=== PATIENT | male | born 1945 | race Asian ===

== ENCOUNTER 2016-07-16 12:38 | Emergency (ER) | payer OTHER ==
[~2016-07-16] VITALS: Ht 175.3 cm; Wt 76.2 kg
[~2016-07-16 12:38] MED LIST: ALBU90AE13 INH; AMLO5TAB PO; AMOX500T5 PO; MEDROL DOSEPAK4 MG PO; TRAM50TA PO
[2016-07-16 13:31] LABS: PLATELET COUNT 222 K/uL (142-355)
[2016-07-16 13:41] LABS: POTASSIUM 3.5 mmol/L (3.6-5.2); SODIUM 137 mmol/L (136-145)
[2016-07-16 18:31] VITALS: BP 136/84; TEMP 97.9
== END 2016-07-16 18:32 | disposition home or self-care (01) ==
LOC: ED 12:38
PROVIDERS: Emergency Medicine
DX: J44.1 Chronic obstructive pulmonary disease with (acute) exacerbation (principal); R06.09 Other forms of dyspnea
CPT/HCPCS: 36600; 80053; 82550; 82805; 83880; 84484; 85027; 87040; 93005; 94644; 96365; 96375; 96376; 99284; J2060; J2930

== ENCOUNTER 2016-07-16 20:48 | Outpatient (CLI) | payer OTHER | END 2016-07-16 20:53 | disposition short-term general hospital (02) | LOC: AMB 20:48 | DX: R06.09 Other forms of dyspnea (principal); R05 Cough | CPT/HCPCS: A0425; A0427 ==

== ENCOUNTER 2016-07-16 20:55 | Inpatient (IN) | payer OTHER ==
[~2016-07-16] VITALS: Ht 175.3 cm; Wt 71.5 kg
[2016-07-16 21:17] VITALS: BP 143/91; TEMP 98.3
[2016-07-16 23:08] VITALS: BP 130/72; TEMP 98.2; Ht 175.3 cm; Wt 71.5 kg
[2016-07-17] VITALS: BP 130/72; TEMP 98.2
[2016-07-17 04:00] VITALS: BP 153/96; TEMP 97.4
[2016-07-17 08:00] VITALS: BP 150/97; TEMP 98.3
[2016-07-17 12:00] VITALS: BP 132/80; TEMP 98.9
[2016-07-17 16:00] VITALS: BP 133/84; TEMP 99.2
[2016-07-17 20:00] VITALS: BP 145/73; TEMP 98.4
[2016-07-18] VITALS: BP 176/95; TEMP 98.3
[2016-07-18 04:00] VITALS: BP 142/95; TEMP 98.1
[2016-07-18 06:05] LABS: POTASSIUM 3.8 mmol/L (3.6-5.2); SODIUM 139 mmol/L (136-145)
[2016-07-18 08:00] VITALS: BP 116/87; TEMP 97.6
[2016-07-18 10:42] LABS: PLATELET COUNT 245 K/uL (142-355)
[2016-07-18 12:20] VITALS: BP 135/87; TEMP 97.8
== END 2016-07-18 15:20 | disposition home or self-care (01) | DRG 192 ==
LOC: ED 20:55 → MED/SURG 21:25
PROVIDERS: Internal Medicine; ADMIT Emergency Medicine
DX: J44.0 Chronic obstructive pulmonary disease with (acute) lower respiratory infection (principal); J20.9 Acute bronchitis, unspecified; J44.1 Chronic obstructive pulmonary disease with (acute) exacerbation; Z72.0 Tobacco use; I10 Essential (primary) hypertension; R44.1 Visual hallucinations; R06.09 Other forms of dyspnea
CPT/HCPCS: 36415; 36600; 80053; 82550; 82805; 83735; 83880; 84484; 85027; 87040; 93005; 94640; 94644; 94664; 94760; 96365; 96372; 96374; 96375; 96376; 99283; 99284; J1650; J2060; J2930